=== PATIENT | male | born 1970 | race Caucasian/White ===

== ENCOUNTER → 2024-04-08 10:35 | Outpatient (REF) | payer OTHER, SELFPAY | LOC: HWRAD 10:35 | PROVIDERS: ATTENDING PHYSICIAN Chiropractor | DX: M99.05 Segmental and somatic dysfunction of pelvic region (principal); M99.01 Segmental and somatic dysfunction of cervical region; M99.03 Segmental and somatic dysfunction of lumbar region | CPT/HCPCS: 72050; 72110; 73523 ==

== ENCOUNTER → 2025-01-26 06:29 | Outpatient (REF) | payer OTHER, SELFPAY ==
[2025-01-26 09:33] LABS: % Basophils 0.5 % (0-2); % Immature Granulocytes 0.2 % (0-0.5); % Lymphocytes 32.4 % (20.5-51.1); % Monocytes 8.7 % (1.7-9.3); % Neutrophils 56.2 % (42.2-75.2); Absolute Eosinophils 0.1 10^3/uL (0-0.7); Absolute Lymphocytes 1.9 10^3/uL (1.2-3.4); Absolute Monocytes 0.5 10^3/uL (0.1-0.6); Absolute Neutrophils 3.4 10^3/uL (1.4-6.5); Hematocrit 46.1 % (39.0-52.0); Hemoglobin 15.8 g/dL (13.0-18.0); Mean Corp Hgb Conc. 34.3 g/dL (33.0-37.0); Mean Corpuscular Hgb 30.5 pg (27.0-31.0); Mean Platelet Volume 9.9 fL (7.4-10.4); Nucleated Red Blood Cells % 0 % (-); Platelet Count 168 10^3/uL (130-400); Red Blood Cell Count 5.18 10^6/uL (4.70-6.10); Red Cell Dist. Width 12.6 % (11.5-14.5)
[2025-01-26 10:30] LABS: ALT (SGPT) 34 U/L (0-50); AST (SGOT) 30 U/L (17-59); Albumin 4.1 g/dl (3.5-5.0); Alkaline Phosphatase 51 U/L (38-126); Blood Urea Nitrogen 18 mg/dl (9-20); Calcium 9.6 mg/dl (8.4-10.2); Carbon Dioxide 33 mmol/L (22-30); Chloride 104 mmol/L (98-107); Glucose 118 mg/dl (70-99); HDL Cholesterol 45 mg/dl; LDL Cholesterol, Calculated 152 mg/dl; Potassium 4.6 mmol/L (3.5-5.1); Sodium 140 mmol/L (135-145); Total Bilirubin 0.9 mg/dl (0.2-1.3); Total Cholesterol 222 mg/dl (50-199); Total Protein 6.7 g/dl (6.3-8.2); Triglyceride 129 mg/dl (10-149); Very Low Density Lipoprotein 25 mg/dl (0-30); eGFR > 60.00
== END ==
LOC: HWLAB 06:29
PROVIDERS: ATTENDING PHYSICIAN Nurse Practitioner Family
DX: Z76.89 Persons encountering health services in other specified circumstances (principal); I10 Essential (primary) hypertension; E78.2 Mixed hyperlipidemia; N18.31 Chronic kidney disease, stage 3a; Z87.820 Personal history of traumatic brain injury
CPT/HCPCS: 36415; 80053; 80061; 85025

== ENCOUNTER → 2025-06-15 07:44 | Outpatient (REF) | payer OTHER, SELFPAY ==
[2025-06-15 10:40] LABS: Microalb - Urine Creatinine 19.700 mg/dl
[2025-06-15 11:01] LABS: Microalbumin, Random Urine < 0.6 mg/dl (0.6-1.7)
[2025-06-15 11:05] LABS: ALT (SGPT) 37 U/L (0-50); AST (SGOT) 37 U/L (17-59); Albumin 4.5 g/dl (3.5-5.0); Alkaline Phosphatase 48 U/L (38-126); Blood Urea Nitrogen 18 mg/dl (9-20); Calcium 9.5 mg/dl (8.4-10.2); Carbon Dioxide 28 mmol/L (22-30); Chloride 105 mmol/L (98-107); Glucose 107 mg/dl (70-99); Potassium 4.5 mmol/L (3.5-5.1); Sodium 137 mmol/L (135-145); Total Protein 6.9 g/dl (6.3-8.2)
[2025-06-15 11:16] LABS: eGFR 47.02
[2025-06-15 11:30] LABS: Glycohemoglobin (HgbA1c) 5.7 % (4.0-5.6)
[2025-06-15 14:03] LABS: Syphilis/T. pallidum Ab Reflex Negative (Negative)
[2025-06-15 14:28] LABS: Hepatitis B Surface Antigen Negative (Negative)
[2025-06-15 14:46] LABS: Hepatitis C Antibody Negative (Negative)
== END ==
LOC: HWLAB 07:44
PROVIDERS: ATTENDING PHYSICIAN Nurse Practitioner Family
DX: R73.01 Impaired fasting glucose (principal); I10 Essential (primary) hypertension; Z20.2 Contact with and (suspected) exposure to infections with a predominantly sexual mode of transmission
CPT/HCPCS: 36415; 80053; 82043; 82570; 83036; 86705; 86706; 86780; 86803; 87340; 87389; 87491; 87591